=== PATIENT | male | born 1965 | race Caucasian/White ===

== ENCOUNTER 2017-04-27 20:52 | Emergency (ER) | payer MEDICAID ==
[~2017-04-27] VITALS: Ht 177.8 cm; Wt 99.8 kg
[2017-04-27 20:59] VITALS: BP_SYST 119
--- NOTE | 2017-04-27 22:36 | NUR ---
Patient to ER bed 3 to gown for evaluation. Side rails up. Report given to CECILIA Schmid.
--- NOTE | 2017-04-27 22:40 | NUR ---
Patient arrived to ED a/o x 4 with c/o cough x 3 days. Patient reports having non-productive cough with pain on cough rated 8/10. Patient states his head has been pounding and he has generalized body aches. No SOB. No increased work of breathing. Denies fever. Skin warm, dry and pink. Denies N/V. Does not appear in immediate distress at this time. Will continue to monitor.
--- NOTE | 2017-04-27 22:50 | NUR ---
ED MD Retana at bedside for medical evaluation.
[2017-04-27] MEDS ORDERED: IPRATROPIUM/ALBUTEROL SULFATE 3 ML AMPUL.NEB INH ONE (23:15)
--- NOTE | 2017-04-27 23:30 | NUR ---
RT at bedside.
--- NOTE | 2017-04-28 | NUR ---
ED MD Retana at bedside reassessing patient.
[2017-04-28 00:25] VITALS: BP_SYST 127
--- NOTE | 2017-04-28 00:25 | NUR ---
Patient given written and verbal discharge instructions and verbalizes understanding. ER MD discussed with patient the results and treatment provided. Patient in stable condition. ID arm band removed. Rx of albuterol and guaifenesin given. Patient educated on pain management and to follow up with PMD. Pain Scale 2/10 at this time. Opportunity for questions provided and answered.
== END 2017-04-28 00:25 | disposition home or self-care (01) ==
LOC: SED 20:52
DX: J06.9 Acute upper respiratory infection, unspecified (principal); I10 Essential (primary) hypertension
CPT/HCPCS: 36415; 71010; 86710; 94640; 99285

== ENCOUNTER 2017-08-03 21:52 | Emergency (ER) | payer MEDICAID ==
[~2017-08-03] VITALS: Ht 177.8 cm; Wt 98.9 kg
[2017-08-03 21:52] VITALS: BP_SYST 162
[2017-08-03] MEDS ORDERED: NACL 0.9% 1,000 ML IV ONE (22:45)
[2017-08-03] MEDS ORDERED: MORPHINE 4 MG/ML INJ. SYRINGE IVP ONE (22:45)
[2017-08-03] MEDS ORDERED: ONDANSETRON HCL 4 MG/2 ML VIAL IVP ONE (22:45)
[2017-08-03 22:50] LABS: BASOPHILS # (AUTO) 0.1 K/uL (0.0-0.2); BASOPHILS % (AUTO) 0.8 % (0.0-2.0); EOSINOPHILS % (AUTO) 0.5 % (0.0-4.0); HEMATOCRIT 46.8 % (36-54); HEMOGLOBIN 15.2 g/dL (14.0-18.0); LYMPHOCYTES # (AUTO) 0.3 K/uL (1.0-5.5); LYMPHOCYTES % (AUTO) 4.7 % (20.5-51.5); MEAN CORPUSCULAR HEMOGLOBIN 28 pg (27-31); MEAN CORPUSCULAR HGB CONC 32 % (32-36); MEAN CORPUSCULAR VOLUME 85 fL (79.0-98.0); MONOCYTES # (AUTO) 0.3 K/uL (0.0-1.0); MONOCYTES % (AUTO) 4.9 % (1.7-9.3); NEUTROPHILS # (AUTO) 6.1 K/uL (1.8-7.7); NEUTROPHILS % (AUTO) 89.1 % (40.0-70.0); PLATELET COUNT (AUTO) 130 K/uL (130-430); RED BLOOD CELL COUNT(AUTO) 5.49 MIL/uL (4.2-6.2); RED CELL DISTRIBUTION WIDTH 12.6 % (9.0-15.0); WHITE BLOOD COUNT (AUTO) 6.8 K/uL (4.8-10.8)
[2017-08-03] MEDS ORDERED: ONDANSETRON HCL 4 MG/2 ML VIAL ONE (23:12)
[2017-08-03 23:33] LABS: CALCIUM 8.8 mg/dL (8.4-11.0); CREATININE 1.35 mg/dL (0.55-1.30); POTASSIUM 4.1 mmol/L (3.5-5.1)
[2017-08-03 23:40] LABS: ALBUMIN 4.3 g/dL (3.4-4.8); TOTAL BILIRUBIN 0.8 mg/dL (0.0-1.0)
[2017-08-03 23:43] LABS: BILIRUBIN,URINE NEGATIVE (NEGATIVE); CLARITY/URINE CLEAR (CLEAR); COLOR,URINE YELLOW (YELLOW); GLUCOSE,URINE NEGATIVE (NEGATIVE); KETONES,URINE TRACE (NEGATIVE); LEUKOCYTE ESTERASE ,URINE NEGATIVE (NEGATIVE); NITRITE, URINE NEGATIVE (NEGATIVE); PROTEIN URINE NEGATIVE (NEGATIVE); UROBILINOGEN,URINE 0.2 (0.2-1.0)
[2017-08-03 23:44] LABS: BLOOD, URINE TRACE (NEGATIVE)
[2017-08-03 23:45] LABS: BACTERIA,URINE FEW /HPF (None Seen); RBC,URINE 0-3 /HPF (0-3); WBC,URINE 0-3 /HPF (0-3)
[2017-08-04 00:30] VITALS: BP_SYST 112
== END 2017-08-04 00:30 | disposition home or self-care (01) ==
LOC: SED 21:52
DX: T62.8X1A Toxic effect of other specified noxious substances eaten as food, accidental (unintentional), initial encounter (principal); R11.2 Nausea with vomiting, unspecified; R19.7 Diarrhea, unspecified; R10.13 Epigastric pain; I10 Essential (primary) hypertension; Y92.89 Other specified places as the place of occurrence of the external cause
CPT/HCPCS: 36415; 80053; 81000; 83690; 85025; 96361; 96374; 96375; 99284; J2270; J2405; J7030

== ENCOUNTER 2017-09-03 16:53 | Emergency (ER) | payer MEDICAID ==
[~2017-09-03] VITALS: Ht 177.8 cm; Wt 99.8 kg
[2017-09-03 17:00] VITALS: BP_SYST 123
--- NOTE | 2017-09-03 17:02 | NUR ---
Patient to ER bed 7 to gown for evaluation. Side rails up. Triaged at bedside with active vomiting, diffuse body aches, diarrhea today. Report given to Diana BROOKS.
--- NOTE | 2017-09-03 17:03 | NUR ---
ER at bedside examining patient.
--- NOTE | 2017-09-03 17:05 | NUR ---
Patient brought in with complaining of diffuse body aches, vomiting and diarrhea starting today. Denies any fevers. No other complaints/injuries per patient or as noted. Will continue to monitor.
--- NOTE | 2017-09-03 17:07 | NUR ---
# 20 gauge angiocath placed to LEFT HAND. Use of asceptic technique. Opsite placed over site. Blood return noted. Blood for lab drawn from site. Flushed with 10 cc of normal saline. No evidence of infiltration noted. Patient tolerated well.
[2017-09-03] MEDS: NACL 0.9% 1,000 ML IV ONE (17:29)
[2017-09-03 17:42] LABS: BASOPHILS % (AUTO) 0.6 % (0.0-2.0); EOSINOPHILS # (AUTO) 0.1 K/uL (0.0-0.4); EOSINOPHILS % (AUTO) 1.7 % (0.0-4.0); HEMOGLOBIN 15.8 g/dL (14.0-18.0); LYMPHOCYTES # (AUTO) 0.4 K/uL (1.0-5.5); LYMPHOCYTES % (AUTO) 7.5 % (20.5-51.5); MEAN CORPUSCULAR HEMOGLOBIN 28 pg (27-31); MEAN CORPUSCULAR HGB CONC 32 % (32-36); MEAN CORPUSCULAR VOLUME 86 fL (79.0-98.0); MONOCYTES # (AUTO) 0.3 K/uL (0.0-1.0); MONOCYTES % (AUTO) 4.5 % (1.7-9.3); NEUTROPHILS # (AUTO) 5.1 K/uL (1.8-7.7); NEUTROPHILS % (AUTO) 85.7 % (40.0-70.0); PLATELET COUNT (AUTO) 132 K/uL (130-430); RED BLOOD CELL COUNT(AUTO) 5.73 MIL/uL (4.2-6.2); RED CELL DISTRIBUTION WIDTH 12.7 % (9.0-15.0); WHITE BLOOD COUNT (AUTO) 5.9 K/uL (4.8-10.8)
[2017-09-03 18:06] LABS: ALBUMIN 4.7 g/dL (3.4-4.8); CALCIUM 9.1 mg/dL (8.4-11.0); CREATININE 1.15 mg/dL (0.55-1.30); TOTAL BILIRUBIN 1.3 mg/dL (0.0-1.0)
[2017-09-03] MEDS: KETOROLAC TROMETHAMINE 30 MG VIAL IVP ONE (18:21)
[2017-09-03] MEDS: ONDANSETRON HCL 4 MG/2 ML VIAL IVP ONE (18:32)
[2017-09-03 18:52] VITALS: BP_SYST 128
--- NOTE | 2017-09-03 18:52 | NUR ---
Patient given written and verbal discharge instructions and verbalizes understanding. ER MD discussed with patient the results and treatment provided. Patient in stable condition. ID arm band removed. IV catheter removed intact and dressing applied, no active bleeding. Rx of Zofran and Tramadol given. Patient educated on pain management and to follow up with PMD in 2-3 days. Pain Scale 0/10 Opportunity for questions provided and answered.
== END 2017-09-03 18:52 | disposition home or self-care (01) ==
LOC: SED 16:53
DX: A08.4 Viral intestinal infection, unspecified (principal); I10 Essential (primary) hypertension; F17.200 Nicotine dependence, unspecified, uncomplicated
CPT/HCPCS: 36415; 80053; 85025; 86710; 96374; 96375; 99284; J1885; J2405; J7030

== ENCOUNTER 2018-12-09 15:46 | Emergency (ER) | payer MEDICAID ==
[~2018-12-09] VITALS: Ht 177.8 cm; Wt 99.8 kg
[2018-12-09 15:52] VITALS: BP_SYST 136
[2018-12-09] MEDS ORDERED: MAG HYDROX/AL HYDROX/SIMETH 30 ML, BELLADONNA ALKALOIDS/PHENOBARB 10 ML, LIDOCAINE VISC... PO ONE ×3 (18:15)
[2018-12-09 19:02] LABS: BASOPHILS % (AUTO) 0.4 % (0.0-2.0); EOSINOPHILS # (AUTO) 0.1 K/uL (0.0-0.4); HEMATOCRIT 44.3 % (36-54); HEMOGLOBIN 14.4 g/dL (14.0-18.0); LYMPHOCYTES % (AUTO) 43.7 % (20.5-51.5); MEAN CORPUSCULAR HEMOGLOBIN 28 pg (27-31); MEAN CORPUSCULAR HGB CONC 33 % (32-36); MEAN CORPUSCULAR VOLUME 86 fL (79.0-98.0); MONOCYTES # (AUTO) 0.4 K/uL (0.0-1.0); MONOCYTES % (AUTO) 7.9 % (1.7-9.3); PLATELET COUNT (AUTO) 136 K/uL (130-430); RED BLOOD CELL COUNT(AUTO) 5.14 MIL/uL (4.2-6.2); RED CELL DISTRIBUTION WIDTH 12.9 % (9.0-15.0); WHITE BLOOD COUNT (AUTO) 4.5 K/uL (4.8-10.8)
[2018-12-09 19:07] LABS: CALCIUM 9.2 mg/dL (8.4-11.0); CREATININE 1.02 mg/dL (0.55-1.30); POTASSIUM 3.9 mmol/L (3.5-5.1)
[2018-12-09 19:11] LABS: ALBUMIN 3.9 g/dL (3.4-4.8); TOTAL BILIRUBIN 0.6 mg/dL (0.0-1.0)
[2018-12-09 19:21] LABS: PROTHROMBIN TIME 10.6 SECS (9.5-12.5)
[2018-12-09 19:47] VITALS: BP_SYST 130
== END 2018-12-09 19:40 | disposition home or self-care (01) ==
LOC: SED 15:46
DX: K29.70 Gastritis, unspecified, without bleeding (principal); I10 Essential (primary) hypertension
CPT/HCPCS: 36415; 74176; 80053; 81002; 82150; 83605; 83690; 85610; 85025; 85730; 99284; J2001

== ENCOUNTER 2019-12-09 18:01 | Emergency (ER) | payer MEDICAID ==
[~2019-12-09] VITALS: Ht 177.8 cm; Wt 99.8 kg
--- NOTE | 2019-12-09 18:10 | NUR ---
Patient to ER bed 7 to gown for evaluation. Side rails up.
[2019-12-09 18:12] VITALS: BP_SYST 136
[2019-12-09] MEDS ORDERED: LISI10TA PO (18:12)
--- NOTE | 2019-12-09 18:12 | NUR ---
Pt came to ER for puncture wound in bottom of R foot. Pt is currently resting in [facility], no pain at this time, does not remember date of last Tetanus shot. Awaiting .
--- NOTE | 2019-12-09 18:20 | NUR ---
ER at bedside examining patient.
[2019-12-09] MEDS ORDERED: KETOROLAC TROMETHAMINE 60 MG/2 ML VIAL IM ONE (18:30)
[2019-12-09] MEDS ORDERED: DIPH-TET-PERTUS Vaccine 0.5 ML VIAL (ADACEL) I.M. ONE (18:30)
--- NOTE | 2019-12-09 18:41 | NUR ---
Pt tolerated medication well, will continue to monitor.
[2019-12-09 18:49] VITALS: BP_SYST 136
--- NOTE | 2019-12-09 18:49 | NUR ---
Patient given written and verbal discharge instructions and verbalizes understanding. ER MD discussed with patient the results and treatment provided. Patient in stable condition. ID arm band removed. Rx of Motrin given. Patient educated on pain management and to follow up with PMD. Pain Scale 0/10. Opportunity for questions provided and answered. Medication side effect fact sheet provided.
== END 2019-12-09 18:49 | disposition home or self-care (01) ==
LOC: SED 18:01
DX: S91.331A Puncture wound without foreign body, right foot, initial encounter (principal); I10 Essential (primary) hypertension; F17.200 Nicotine dependence, unspecified, uncomplicated; W22.8XXA Striking against or struck by other objects, initial encounter; Y93.89 Activity, other specified; Y92.89 Other specified places as the place of occurrence of the external cause; Y99.8 Other external cause status
CPT/HCPCS: 90471; 90715; 96372; 99284; J1885

== ENCOUNTER 2021-06-30 19:16 | Emergency (ER) | payer OTHER, MEDICAID ==
[~2021-06-30] VITALS: Ht 177.8 cm; Wt 99.8 kg
[~2021-06-30 19:16] MED LIST: LISI10TA PO
[2021-06-30 19:52] VITALS: BP_SYST 136
--- NOTE | 2021-06-30 20:00 | NUR ---
Patient left without being seen. No further treatment done. ER MD aware
[2021-07-01] MEDS ORDERED: CYCL10TA24 PO (18:58)
[2021-07-01] MEDS ORDERED: IBUP-1969 PO (18:58)
[2021-07-01] MEDS ORDERED: LIDO1ADH77 TP (18:58)
== END 2021-06-30 20:00 | disposition left against medical advice (07) ==
LOC: EEVIPCON 19:16 → SED 19:16
DX: R51.9 Headache, unspecified (principal); V49.49XA Driver injured in collision with other motor vehicles in traffic accident, initial encounter; Y93.89 Activity, other specified; Y92.89 Other specified places as the place of occurrence of the external cause; Y99.8 Other external cause status; Z53.21 Procedure and treatment not carried out due to patient leaving prior to being seen by health care provider

== ENCOUNTER 2021-07-01 17:42 | Emergency (ER) | payer OTHER, MEDICAID ==
[~2021-07-01] VITALS: Ht 177.8 cm; Wt 99.8 kg
[2021-07-01 17:45] VITALS: BP_SYST 135
--- NOTE | 2021-07-01 17:50 | NUR ---
BROUGHT BACK TO BED #4 AND TRIAGED. REPORT GIVEN TO
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
--- NOTE | 2021-07-01 18:34 | NUR ---
ER at bedside examining patient.
[2021-07-01] MEDS ORDERED: IBUP-1969 PO (18:58)
[2021-07-01] MEDS ORDERED: LIDO1ADH77 TP (18:58)
[2021-07-01] MEDS ORDERED: CYCL10TA24 PO (18:58)
[2021-07-01 19:18] VITALS: BP_SYST 142
--- NOTE | 2021-07-01 19:20 | NUR ---
Patient given written and verbal discharge instructions and verbalizes understanding. ER MD discussed with patient the results and treatment provided. Patient in stable condition. ID arm band removed. Rx of Flexeril, Motrin and lidocaine patch given. Patient educated on pain management and to follow up with PMD. Pain Scale 3. Opportunity for questions provided and answered. Medication side effect fact sheet provided.
== END 2021-07-01 19:20 | disposition home or self-care (01) ==
LOC: SED 17:42
DX: S06.0X0A Concussion without loss of consciousness, initial encounter (principal); S16.1XXA Strain of muscle, fascia and tendon at neck level, initial encounter; S39.012A Strain of muscle, fascia and tendon of lower back, initial encounter; I10 Essential (primary) hypertension; E11.9 Type 2 diabetes mellitus without complications; Z79.899 Other long term (current) drug therapy; V43.52XA Car driver injured in collision with other type car in traffic accident, initial encounter; Y93.89 Activity, other specified; Y92.89 Other specified places as the place of occurrence of the external cause; Y99.8 Other external cause status
CPT/HCPCS: 99283

== ENCOUNTER 2021-12-13 23:02 | Inpatient (IN) | payer MEDICAID, OTHER ==
[~2021-12-13] VITALS: Ht 177.8 cm; Wt 97.7 kg
[~2021-12-13 23:02] MED LIST changes: +CYCL10TA24 PO; +IBUP-1969 PO; +LIDO1ADH77 TP
[2021-12-13 23:03] VITALS: BP_SYST 142
[2021-12-13] MEDS ORDERED: ASPIRIN 81 MG TAB.CHEW PO ONE (23:15)
[2021-12-13 23:56] LABS: BASOPHILS % (AUTO) 0.7 % (0.0-2.0); EOSINOPHILS # (AUTO) 0.1 K/uL (0.0-0.4); EOSINOPHILS % (AUTO) 2.7 % (0.0-4.0); HEMATOCRIT 42.2 % (36-54); HEMOGLOBIN 14.1 g/dL (14.0-18.0); LYMPHOCYTES # (AUTO) 1.8 K/uL (1.0-5.5); LYMPHOCYTES % (AUTO) 43.8 % (20.5-51.5); MEAN CORPUSCULAR HEMOGLOBIN 28 pg (27-31); MEAN CORPUSCULAR HGB CONC 33 % (32-36); MEAN CORPUSCULAR VOLUME 84 fL (79.0-98.0); MONOCYTES # (AUTO) 0.3 K/uL (0.0-1.0); MONOCYTES % (AUTO) 8.4 % (1.7-9.3); NEUTROPHILS # (AUTO) 1.8 K/uL (1.8-7.7); NEUTROPHILS % (AUTO) 44.4 % (40.0-70.0); PLATELET COUNT (AUTO) 123 K/uL (130-430); RED BLOOD CELL COUNT(AUTO) 5.02 MIL/uL (4.2-6.2); RED CELL DISTRIBUTION WIDTH 13.6 % (9.0-15.0); WHITE BLOOD COUNT (AUTO) 4.1 K/uL (4.8-10.8)
[2021-12-14] VITALS (7 sets, daily range): BP systolic 117–147
[2021-12-14 00:06] LABS: ANION GAP 8 (5-15); CALCIUM 8.9 mg/dL (8.4-11.0); CHLORIDE 104 mmol/L (98-107); CREATININE 1.22 mg/dL (0.55-1.30); GLUCOSE 112 mg/dL (70-99); SODIUM SERUM 141 mmol/L (136-145); UREA NITROGEN, BLOOD 17 mg/dL (8-21)
[2021-12-14 00:07] LABS: GFR AFRICAN AMERICAN 79 mL/min (>90)
[2021-12-14 00:13] LABS: ALANINE AMINOTRANSFERASE 33 U/L (12-78); ASPARTATE AMINOTRANSFERASE 23 U/L (10-37); TOTAL BILIRUBIN 0.7 mg/dL (0.0-1.0)
[2021-12-14] MEDS ORDERED: NITROGLYCERIN 0.4 MG TAB.SUBL SL ONE (01:15)
[2021-12-14] MEDS ORDERED: ASPIRIN 81 MG TAB.CHEW PO SCH (09:00)
[2021-12-14] MEDS: ASPIRIN 81 MG TAB.CHEW PO SCH (10:32)
[2021-12-14] MEDS ORDERED: LIP20 PO (15:46)
[2021-12-14] MEDS ORDERED: METF-379 PO (15:46)
[2021-12-14] MEDS ORDERED: ACETAMINOPHEN 325 MG TABLET PO PRN (18:00)
[2021-12-15 00:38] VITALS: BP_SYST 131
[2021-12-15] MEDS ORDERED: MORPHINE 2 MG/ML INJ. SYRINGE IVP PRN (00:45)
[2021-12-15 06:52] LABS: BASOPHILS % (AUTO) 0.4 % (0.0-2.0); EOSINOPHILS # (AUTO) 0.1 K/uL (0.0-0.4); EOSINOPHILS % (AUTO) 3.3 % (0.0-4.0); HEMATOCRIT 44.1 % (36-54); HEMOGLOBIN 14.4 g/dL (14.0-18.0); LYMPHOCYTES # (AUTO) 1.7 K/uL (1.0-5.5); LYMPHOCYTES % (AUTO) 41.2 % (20.5-51.5); MEAN CORPUSCULAR HEMOGLOBIN 28 pg (27-31); MEAN CORPUSCULAR HGB CONC 33 % (32-36); MEAN CORPUSCULAR VOLUME 85 fL (79.0-98.0); MONOCYTES # (AUTO) 0.4 K/uL (0.0-1.0); MONOCYTES % (AUTO) 8.9 % (1.7-9.3); NEUTROPHILS # (AUTO) 1.9 K/uL (1.8-7.7); NEUTROPHILS % (AUTO) 46.2 % (40.0-70.0); PLATELET COUNT (AUTO) 108 K/uL (130-430); RED BLOOD CELL COUNT(AUTO) 5.21 MIL/uL (4.2-6.2); RED CELL DISTRIBUTION WIDTH 13.6 % (9.0-15.0); WHITE BLOOD COUNT (AUTO) 4.1 K/uL (4.8-10.8)
[2021-12-15 07:55] VITALS: BP_SYST 122
[2021-12-15 08:00] VITALS: BP_SYST 122
[2021-12-15 08:26] LABS: ALBUMIN 3.9 g/dL (3.4-4.8); CALCIUM 9.2 mg/dL (8.4-11.0); CREATININE 1.04 mg/dL (0.55-1.30); POTASSIUM 4.4 mmol/L (3.5-5.1); THYROID STIMULATING HORMONE 1.79 uIu/mL (0.36-3.74); TOTAL BILIRUBIN 0.6 mg/dL (0.0-1.0)
[2021-12-15] MEDS: ASPIRIN 81 MG TAB.CHEW PO SCH (10:02)
[2021-12-15 12:15] VITALS: BP_SYST 124
[2021-12-15 15:48] VITALS: BP_SYST 124
== END 2021-12-15 17:03 | disposition home or self-care (01) | DRG 203 ==
LOC: SED 23:02 → STU 12-14 01:30
PROVIDERS: ADMIT Internal Medicine; ATTEND Internal Medicine
DX: R07.89 Other chest pain (principal); D69.6 Thrombocytopenia, unspecified; E66.9 Obesity, unspecified; E78.00 Pure hypercholesterolemia, unspecified; E78.5 Hyperlipidemia, unspecified; F17.200 Nicotine dependence, unspecified, uncomplicated; I10 Essential (primary) hypertension; Z79.899 Other long term (current) drug therapy; Z68.30 Body mass index [BMI] 30.0-30.9, adult; Z63.4 Disappearance and death of family member
CPT/HCPCS: 36415; 71045; 71250-TC; 76376; 80053; 80061; 83036; 83880; 84443; 84484; 85025; 85379; 93005; 93017; 93306; 99285; G0378

== ENCOUNTER 2023-09-26 19:52 | Emergency (ER) | payer MEDICAID ==
[~2023-09-26] VITALS: Ht 177.8 cm; Wt 104.3 kg
[~2023-09-26 19:52] MED LIST changes: -CYCL10TA24 PO; -IBUP-1969 PO; -LIDO1ADH77 TP; +LIP20 PO; +METF-379 PO
[2023-09-26 19:58] VITALS: BP_SYST 131; PULSE 72; RESP 16; TEMP 98.1; O2SAT 97
[2023-09-26] MEDS ORDERED: EPINEPHRINE HCL/PF 1 MG/ML AMP IM ONE (20:15)
[2023-09-26] MEDS ORDERED: PRED20TA PO (20:55)
[2023-09-26 21:07] VITALS: BP_SYST 141; PULSE 75; RESP 20; O2SAT 95
== END 2023-09-26 21:07 | disposition home or self-care (01) ==
LOC: SED 19:52
DX: L23.9 Allergic contact dermatitis, unspecified cause (principal); E11.9 Type 2 diabetes mellitus without complications; I10 Essential (primary) hypertension; Z79.899 Other long term (current) drug therapy
CPT/HCPCS: 99283; 96372; J0171

== ENCOUNTER 2024-06-18 16:42 | Emergency (ER) | payer MEDICAID, OTHER ==
[~2024-06-18] VITALS: Ht 177.8 cm; Wt 104.3 kg
[2024-06-18 16:42] VITALS: BP_SYST 145; PULSE 81; RESP 19; TEMP 97; O2SAT 95
[~2024-06-18 16:42] MED LIST changes: +PRED20TA PO
[2024-06-18] MEDS: NACL 0.9% 1,000 ML IV ONE (18:04)
[2024-06-18 18:10] LABS: BASOPHILS % (AUTO) 0.5 % (0.0-2.0); EOSINOPHILS # (AUTO) 0.1 K/uL (0.0-0.4); EOSINOPHILS % (AUTO) 1.3 % (0.0-4.0); HEMATOCRIT 42.9 % (36-54); HEMOGLOBIN 14.6 g/dL (14.0-18.0); LYMPHOCYTES # (AUTO) 1.8 K/uL (1.0-5.5); MEAN CORPUSCULAR HEMOGLOBIN 29 pg (27-31); MEAN CORPUSCULAR HGB CONC 34 % (32-36); MEAN CORPUSCULAR VOLUME 85 fL (79.0-98.0); MONOCYTES # (AUTO) 0.4 K/uL (0.0-1.0); NEUTROPHILS # (AUTO) 2.9 K/uL (1.8-7.7); NEUTROPHILS % (AUTO) 56.2 % (40.0-70.0); PLATELET COUNT (AUTO) 118 K/uL (130-430); RED BLOOD CELL COUNT(AUTO) 5.05 MIL/uL (4.2-6.2); WHITE BLOOD COUNT (AUTO) 5.1 K/uL (4.8-10.8)
[2024-06-18] MEDS: ONDANSETRON HCL 4 MG/2 ML VIAL IVP ONE (18:13)
[2024-06-18] MEDS: MECLIZINE HCL 25 MG TABLET (ANITVERT) PO ONE (18:34)
[2024-06-18 18:46] LABS: ANION GAP 8 (5-15); CALCIUM 9.4 mg/dL (8.4-11.0); CARBON DIOXIDE 28 mmol/L (23-29); CHLORIDE 107 mmol/L (98-107); CREATININE 1.28 mg/dL (0.55-1.30); GFR AFRICAN AMERICAN 74 mL/min (>90); GLUCOSE 123 mg/dL (74-106); POTASSIUM 3.9 mmol/L (3.5-5.1); SODIUM SERUM 143 mmol/L (136-145); UREA NITROGEN, BLOOD 16 mg/dL (8-21)
[2024-06-18 18:50] LABS: GFR NON AFRICAN-AMERICAN 61 mL/min (>90)
[2024-06-18 18:55] LABS: BILIRUBIN,URINE NEGATIVE (NEGATIVE); BLOOD, URINE NEGATIVE (NEGATIVE); CLARITY/URINE CLEAR (CLEAR); COLOR,URINE YELLOW (YELLOW); GLUCOSE,URINE NEGATIVE (NEGATIVE); KETONES,URINE NEGATIVE (NEGATIVE); LEUKOCYTE ESTERASE ,URINE NEGATIVE (NEGATIVE); NITRITE, URINE NEGATIVE (NEGATIVE); PROTEIN URINE NEGATIVE (NEGATIVE); UROBILINOGEN,URINE 0.2 (0.2-1.0)
[2024-06-18] MEDS ORDERED: MECL-292 PO (19:03)
[2024-06-18 19:13] VITALS: BP_SYST 140; PULSE 65; RESP 16; TEMP 97; O2SAT 95
== END 2024-06-18 19:13 | disposition home or self-care (01) ==
LOC: SED 16:42
DX: R42 Dizziness and giddiness (principal); R53.1 Weakness; I10 Essential (primary) hypertension; E11.9 Type 2 diabetes mellitus without complications; E78.5 Hyperlipidemia, unspecified; Z79.899 Other long term (current) drug therapy; Z79.52 Long term (current) use of systemic steroids; Z79.84 Long term (current) use of oral hypoglycemic drugs
CPT/HCPCS: 99285; 96374; 70450; 71045; 96361; 80048; 81001; 85025; 84484; 36415; 93005; 82948; 81003; J2405; J7030; J8597